=== PATIENT | female | born 1955 | race Two or more races ===

== ENCOUNTER 2021-09-02 22:45 | Inpatient (IN) | payer MEDICAID, OTHER ==
[~2021-09-02] VITALS: Ht 172.7 cm; Wt 123.8 kg
--- NOTE | 2021-09-02 22:58 | NUR ---
BIBRA FROM [facility] C/O NON RADIATING CHEST PAIN X45 MINS. 324 ASPIRIN AND 1 NITRO NASAL SPRAY GIVEN QUANTITATIVE EQUITY HEAD. PT A/OX3. TOLERATING R/A AT 96% CONNECTED PT TO POX AND MONITOR
[2021-09-02] MEDS ORDERED: NITROGLYCERIN 0.4 MG/TAB BOTTLE ONE (23:16)
[2021-09-02] MEDS ORDERED: NITROGLYCERIN PACKET 1 GM PACKET ONE (23:17)
--- NOTE | 2021-09-02 23:23 | NUR ---
COVID TEST SWABBED AND SENT TO LAB
[2021-09-02] MEDS ORDERED: NITROGLYCERIN 0.4 MG/TAB BOTTLE SL ONE (23:30)
[2021-09-02] MEDS ORDERED: NITROGLYCERIN PACKET 1 GM PACKET TD ONE (23:30)
[2021-09-02 23:54] LABS: BASOPHILS # (AUTO) 0.1 K/uL (0.0-0.2); BASOPHILS % (AUTO) 0.8 % (0.0-2.0); EOSINOPHILS % (AUTO) 6.7 % (0.0-6.0); HEMATOCRIT 46 % (33-45); HEMOGLOBIN 14.8 g/dL (11.5-14.8); LYMPHOCYTES # (AUTO) 1.7 K/uL (0.8-4.8); LYMPHOCYTES % (AUTO) 21.1 % (20.0-44.0); MEAN CORPUSCULAR HGB CONC 32 g/dl (31.0-36.0); MEAN CORPUSCULAR VOLUME 88 fL (82-100); MONOCYTES # (AUTO) 0.7 K/uL (0.1-1.30); MONOCYTES % (AUTO) 8.1 % (2.0-12.0); NEUTROPHILS # (AUTO) 5.1 K/uL (1.8-8.9); NEUTROPHILS % (AUTO) 63.3 % (43.0-81.0); PLATELET COUNT (AUTO) 290 K/uL (150-450); RED BLOOD CELL COUNT(AUTO) 5.23 MIL/uL (4.0-5.2); WHITE BLOOD COUNT (AUTO) 8.1 K/uL (4.3-11.0)
[2021-09-03 00:06] LABS: CALCIUM, SERUM 9.3 mg/dL (8.5-10.1); CARBON DIOXIDE 29 mmol/L (21-32); CHLORIDE 101 mmol/L (98-107); CREATININE 0.8 mg/dL (0.6-1.3); GLUCOSE 347 mg/dL (74-106); POTASSIUM 4.1 mmol/L (3.5-5.1); SODIUM SERUM 137 mmol/L (136-145); UREA NITROGEN, BLOOD 21 mg/dL (7-18)
--- NOTE | 2021-09-03 00:11 | NUR ---
CALLED RT FOR BREATHING TX
[2021-09-03] MEDS ORDERED: ALBUTEROL FS 2.5 MG/3 ML VIAL.NEB ONE (00:14)
[2021-09-03] MEDS ORDERED: IPRATROPIUM NEB FS 0.5 MG/2.5 ML AMPUL.NEB ONE (00:14)
--- NOTE | 2021-09-03 00:16 | NUR ---
RT AT PT'S BEDSIDE
[2021-09-03 00:18] LABS: ALANINE AMINOTRANSFERASE 19 U/L (12-78); ALBUMIN 3.2 g/dL (3.4-5.0); ALKALINE PHOSPHATASE 114 U/L (46-116); ASPARTATE AMINOTRANSFERASE 9 U/L (15-37); BILIRUBIN,DIRECT 0.1 mg/dL (0.0-0.2); BILIRUBIN,TOTAL 0.2 mg/dL (0.2-1.0); TOTAL PROTEIN, SERUM 7.3 g/dL (6.4-8.2)
[2021-09-03 00:21] LABS: D-DIMER 1.78 mg/L(FEU (0.17-0.50)
[2021-09-03] MEDS ORDERED: LEVOFLOXACIN 750 MG /D5W 150ML 150 ML IV ONE (00:27)
[2021-09-03] MEDS ORDERED: predniSONE 20 MG TABLET ONE (00:27)
[2021-09-03] MEDS ORDERED: LEVOFLOXACIN 750 MG /D5W 150ML PIGGYBACK IV ONE (00:30)
[2021-09-03] MEDS ORDERED: IPRATROPIUM NEB FS 0.5 MG/2.5 ML AMPUL.NEB NEB ONE (00:30)
[2021-09-03] MEDS ORDERED: ALBUTEROL FS 2.5 MG/3 ML VIAL.NEB NEB ONE (00:30)
[2021-09-03] MEDS ORDERED: predniSONE 20 MG TABLET PO ONE (00:30)
[2021-09-03] MEDS ORDERED: TRAZ-182 PO (00:47)
[2021-09-03] MEDS ORDERED: ATOR80TA PO (00:47)
[2021-09-03] MEDS ORDERED: CHOL400T11 PO (00:47)
[2021-09-03] MEDS ORDERED: INSU100V36 SQ ×2 (00:47)
[2021-09-03] MEDS ORDERED: ASCO500T21 PO (00:47)
[2021-09-03] MEDS ORDERED: POTA-10 PO (00:47)
[2021-09-03] MEDS ORDERED: SENN-261 PO (00:47)
[2021-09-03] MEDS ORDERED: INSU100I26 SQ (00:47)
[2021-09-03] MEDS ORDERED: LIOT50TA2 PO (00:47)
[2021-09-03] MEDS ORDERED: EXEN2AUT SQ (00:47)
[2021-09-03] MEDS ORDERED: MULT-447 PO (00:47)
[2021-09-03] MEDS ORDERED: LEVO25TA7 PO (00:47)
[2021-09-03] MEDS ORDERED: FURO-145 PO (00:47)
[2021-09-03] MEDS ORDERED: LOSA25TA27 PO (00:47)
[2021-09-03] MEDS ORDERED: ASPI-1169 PO (00:47)
[2021-09-03] MEDS ORDERED: EMPA25TA PO (00:47)
[2021-09-03] MEDS ORDERED: CRAN425C6 PO (00:47)
[2021-09-03] MEDS ORDERED: METF-441 PO (00:47)
[2021-09-03] MEDS ORDERED: MONT10TA22 PO (00:47)
[2021-09-03] MEDS ORDERED: HYDR12.55 PO (00:47)
[2021-09-03] MEDS ORDERED: ISOS30TA86 PO (00:47)
[2021-09-03] MEDS ORDERED: IV NS 0.9% 250 ML IV ONE ×2 (01:14→14:00)
[2021-09-03] MEDS ORDERED: IOHEXOL-350 100 ML VIAL IV ONE ×2 (01:14→14:00)
--- NOTE | 2021-09-03 02:08 | NUR ---
ASSIGNED TO 316-2
[2021-09-03 03:00] VITALS: BP 126/75
--- NOTE | 2021-09-03 03:01 | NUR ---
MRSA SWAB COLLECTED AND SENT TO LAB. PATIENT'S BELONGINGS LIST DONE.
--- NOTE | 2021-09-03 03:13 | NUR ---
REPORT GIVEN TO ZAFAR
--- NOTE | 2021-09-03 03:55 | NUR ---
TRANSFERRED TO THIRD FLOOR UNDER ACLS
[2021-09-03] MEDS ORDERED: DEXTROSE 50%-WATER 50 ML DISP.SYRIN IV PRN (04:30)
[2021-09-03] MEDS ORDERED: *INSULIN REGULAR(HUMULIN R)HUM 100 UNIT/ML VIAL SQ PRN (04:30)
--- NOTE | 2021-09-03 04:35 | NUR ---
PILE TRIMMER NOTES pt A/OX 3 ON ROOM AIR TOLERATING WELL. NO PAIN OR RESPIRATORY DISTRESS NOTED. PT HAS IV ACCESS ON THE L HAND 20G PATENT INTACT FLUSHING WELL. SKIN ASSESSMENT SKIN IS WARM AND DRY TO THE TOUCH. NOTED PT WITH SCABS ON HER RIGHT LEG AND GENERALIZED REDNESS ON HER BUTTOCKS ANS SACRAL AREA .PT WOUND PHOTOS TAKEN AND PLACED IN CHART. WOUND CONSULT ORDERED. PT BELONGINGS CHECKED. PT MADE COMFORTABLE. PT ORIENTED TO ROOM AND UNIT. CALL LIGHT WITHIN REACH, TABLE WITHIN REACH WILL CONTINUE TO MONITOR.
[2021-09-03] MEDS: BLOOD SUGAR DIAGNOSTIC 1 EACH STRIP VI SCH ×4 (05:48→18:08)
[2021-09-03] MEDS: INSULIN REGULAR, HUMAN 100 UNIT/ML 3 ML VIAL SQ PRN ×3 (05:49→18:08)
[2021-09-03] MEDS ORDERED: ATORVASTATIN 40 MG TABLET PO SCH (09:00)
[2021-09-03] MEDS ORDERED: FUROSEMIDE 20 MG TABLET PO SCH (09:00)
[2021-09-03] MEDS ORDERED: ISOSORBIDE MONONITRATE (30MG) 30 MG TAB.SR.24H PO SCH (09:00)
[2021-09-03] MEDS ORDERED: ASCORBIC ACID 500 MG TABLET PO SCH (09:00)
[2021-09-03] MEDS ORDERED: POTASSIUM CHLORIDE 10 MEQ TABLET.SA PO SCH (09:00)
[2021-09-03] MEDS ORDERED: EMPAGLIFLOZIN 25 MG TABLET PO SCH (09:00)
[2021-09-03] MEDS ORDERED: LIOTHYRONINE SODIUM 50 MCG PO SCH (09:00)
[2021-09-03] MEDS ORDERED: ASPIRIN 81 MG TAB.CHEW PO SCH (09:00)
[2021-09-03] MEDS ORDERED: INSULIN GLARGINE, 100 UNIT/ML CARTRIDGE SQ SCH (09:00)
[2021-09-03] MEDS ORDERED: CHOLECALCIFEROL (VITAMIN D 3) 400 UNIT TABLET PO SCH (09:00)
[2021-09-03] MEDS ORDERED: LIOTHYRONINE SODIUM (25 MCG) 25 MCG TABLET PO SCH (09:00)
[2021-09-03] MEDS ORDERED: HYDROCHLOROTHIAZIDE 25 MG TABLET PO SCH (09:00)
[2021-09-03] MEDS ORDERED: MULTIVIT W/MINERALS 1 TAB TABLET PO SCH (09:00)
--- NOTE | 2021-09-03 09:21 | NUR ---
WOUND CARE CONSULT: PT PRESENTS WITH SOME REDNESS TO GROIN FOLDS, DRY SCABS/LESIONS TO LEFT LOWER LEG AND THIGH WELL OPEN WOUND TO ABDOMEN, PRESENT ON ADMISSION. DR NICHOLE BOO CALLED FOR SURGICAL CONSULT. RECOMMENDATIONS MADE FOR SKIN PROTECTION. DISCUSSED WITH NURSING STAFF. PT IS ON BILL ISOFLEX LOW AIRLOSS BED. MD IN AGREEMENT WITH PLAN OF CARE.
[2021-09-03] MEDS ORDERED: Z GUARD REMEDY 4 OZ OINT TP PRN (09:30)
[2021-09-03] MEDS ORDERED: HYDROGEL DRESSING 90 GM TUBE TP SCH (09:30)
[2021-09-03] MEDS ORDERED: Z GUARD REMEDY 4 OZ OINT TP SCH (09:30)
[2021-09-03] MEDS: HYDROGEL DRESSING 90 GM TUBE TP PRN ×3 (10:51→11:21)
[2021-09-03] MEDS ORDERED: LOSARTAN POTASSIUM 25 MG TABLET PO SCH (13:00)
[2021-09-03] MEDS: INSULIN LISPRO/ASPART 100 UNIT/ML CARTRIDGE SQ SCH ×2 (13:35→18:11)
[2021-09-03] MEDS: METOPROLOL TARTRATE INJ 5 MG/5 ML AMPUL IVP PRN ×2 (14:10→14:15)
[2021-09-03] MEDS ORDERED: METOPROLOL TARTRATE INJ 5 MG/5 ML AMPUL ONE ×2 (14:10→14:30)
--- NOTE | 2021-09-03 14:26 | NUR ---
FOR CTA, while in the middle of the procedure, patient refuse, complaining of back pain, cant stay longer on CT table, given total of 10 mg of metoprolol. VS stable, pt reurned to her room. informed primary RN Alyson
[2021-09-03] MEDS ORDERED: NITROGLYCERIN 0.4 MG/TAB BOTTLE SL ONE (14:30)
[2021-09-03] MEDS ORDERED: CLOTRIMAZOLE 1% 15 GM TUBE TP SCH (17:00)
--- NOTE | 2021-09-03 19:40 | NUR ---
COVER CUTTER MACHINE OPENING/DISCHARGE NOTES PATIENT AWAKE IN BED, A/OX3-4, BREATHING EVEN AND UNLABORED ON ROOM AIR; TOLERATING WELL; TELE MONITOR READS SINUS RHYTHM 90S; IV SITE REMOVED AND IV TIP INTACT; NO S/S OF BLEEDING OR REDNESS NOTED; BELONGINGS CHECKED; GONZALES CATH IN PLACE WITH YELLOW OUTPUT; SPOKE WITH JEAN COSTELLO FROM [facility] FOR REPORTED; VSS; AWAITING EMT ARRIVAL FOR PATIENT TRANSPORT
[2021-09-03 20:12] VITALS: BP 120/63
[2021-09-03 20:20] VITALS: BP 120/63
--- NOTE | 2021-09-03 20:21 | NUR ---
PLANNING DIVISION SUPERINTENDENT NOTES AMBULANCE REPORTED THEY WILL ARRIVE IN 10 MINUTES FOR HEAVY MOBILE EQUIPMENT REPAIRER; TELE MONITOR REMOVED FROM PATIENT; AWAITING ARRIVAL; SPOKE WITH JEAN COSTLELO FROM FACILITY TO INFORM TRANSPORT WILL BE HERE SOON;
--- NOTE | 2021-09-03 21:27 | NUR ---
DISCHARGE NOTES 2 EMT STAFF ON UNIT FOR PATIENT DOCTOR OF NATUROPATHIC MEDICINE AND TRANSPORT BACK TO [facility]. FACILITY AWARE OF PATIENT ARRIVAL, BELONGINGS CHECKED AND WITH PATIENT ON BED; PATIENT LEAVING UNIT ON [place]; CHARGE NURSE AWARE
[2021-09-03] MEDS ORDERED: TRAZODONE 50 MG TABLET PO SCH (22:00)
[2021-09-03] MEDS ORDERED: SENNOSIDES 8.6 MG TABLET PO SCH (22:00)
[2021-09-03] MEDS ORDERED: MONTELUKAST SODIUM (10MG) 10 MG TABLET PO SCH (22:00)
[2021-09-04] MEDS ORDERED: LEVOTHYROXINE SODIUM 100 MCG TABLET PO SCH (07:30)
[2021-09-04] MEDS ORDERED: INSULIN ASPART/LISPRO 100 UNIT/ML CARTRIDGE SQ SCH (09:00)
== END 2021-09-03 22:05 | DRG 203 ==
LOC: ER 22:47 → TELE 09-03 02:10
PROVIDERS: ADMIT Internal Medicine; ATTEND Internal Medicine
DX: M94.0 Chondrocostal junction syndrome [Tietze] (principal); I13.11 Hypertensive heart and chronic kidney disease without heart failure, with stage 5 chronic kidney disease, or end stage renal disease; E11.22 Type 2 diabetes mellitus with diabetic chronic kidney disease; G81.91 Hemiplegia, unspecified affecting right dominant side; N18.6 End stage renal disease; J44.9 Chronic obstructive pulmonary disease, unspecified; Z20.822 Contact with and (suspected) exposure to COVID-19; Z79.84 Long term (current) use of oral hypoglycemic drugs; Z79.4 Long term (current) use of insulin; Z79.899 Other long term (current) drug therapy; Z79.82 Long term (current) use of aspirin; Z87.891 Personal history of nicotine dependence; Z79.890 Hormone replacement therapy; E78.5 Hyperlipidemia, unspecified; E03.9 Hypothyroidism, unspecified; E11.65 Type 2 diabetes mellitus with hyperglycemia; E66.01 Morbid (severe) obesity due to excess calories; Z68.41 Body mass index [BMI] 40.0-44.9, adult
CPT/HCPCS: 36415; 71045-TC; 80048-TC; 80076-TC; 82962-TC; 83880; 84484-TC; 85025-TC; 85378-TC; 85730-TC; 87081-TC; 93307-TC; A6248; C9803; G0378; J1815; J1956; J3490; J7050; Q9967